=== PATIENT | female | born 1965 | race Two or more races ===

== ENCOUNTER 2025-05-13 14:52 | Emergency (ER) | payer MEDICAID, SELFPAY ==
--- NOTE | 2025-05-13 15:07 | EDNOTE_ITS ---
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 Described as room-spinning sensation that is aggravated with head movements. Accompanied unsteady gait. Denies any history of similar symptoms. Denies headache, change in vision/speech, loss of sensation/movement. Patient reports she did have breakfast. Related Data Previous Rx's ?Medication ?Instructions ?Recorded meclizine 50 mg tablet 50 mg PO BID PRN dizziness # 30 tabs 05/13/25 Allergies Allergy/AdvReac Type Severity Reaction Status Date / Time No Known Allergies Allergy Verified 05/13/25 14:54 Review of Systems Review of Systems Systems Reviewed: All systems reviewed, normal except as documented Past Medical History Past Medical History CARDIAC: Positive Hypertension Social History SMOKING STATUS: Never smoker ED Exam Narrative Physical exam: Constitutional: Awake, alert, nontoxic, no acute distress HEENT: Normocephalic, atraumatic, extraocular movements intact, right beating nystagmus. Neck: Supple CV: Regular rate and rhythm, no murmurs/rubs/gallops Lungs: Clear to auscultation BL, no respiratory distress. Abd: Soft, NT, ND, no HSM noted to palpation Neuro: AAOx3, CN 2-12 GIBL, rigth beating nystagmus, rapid alternating hand movements intact, romberg negative, somewhat unsteady gait Skin: Warm, dry, intact Course Course Course Narrative: 1655h: RN reports the patients gait is unsteady and still complains of dizziness. States the patient has yet to receive the Meclizine. 1805h: On reassessment after Meclizine, the patient reports moderately improved. CT with no no acute intracranial process, symptoms likely benign positional vertigo. Will prescribe Meclizine for home and is stable for DC. Quality Measures none Orders Category Date Time Status Orthostatic Vitals NOW Care 05/13/25 15:[address] head/brain wo con Stat Exams 05/13/25 17:02 Completed CBC Stat Lab 05/13/25 15:24 Completed CK [Creatine Kinase] Stat Lab 05/13/25 15:24 Completed CMP [Comprehensive Metabolic Panel] Stat Lab 05/13/25 15:24 Completed Magnesium Stat Lab 05/13/25 15:24 Completed Urinalysis, C/S if Indicated Stat Lab 05/13/25 16:02 Completed Meclizine HCl [Antivert] Med 05/13/25 15:07 Discontinued 50 mg PO X1 ONE Vital Signs Vital signs: Vital Signs Temperature 98.2 F 05/13/25 15:09 Pulse Rate 72 05/13/25 15:09 Respiratory Rate 17 05/13/25 15:09 Blood Pressure 189/82 H 05/13/25 15:09 Pulse Oximetry (%) 96 05/13/25 15:09 Oxygen Delivery Method Room Air 05/13/25 15:09 Pulse ox is 96% on room air which is adequate. Dizziness MDM Narrative MDM Narrative:: Siomara Kenny am scribing for and in the presence of Dr. Lubin. Patient data External records reviewed:: [facility] previous records Clinical information provided by:: patient Social determinants that could affect healthcare access:: none Patient has the following chronic illnesses:: Hypertension How is presenting disease/condition affected by chronic disease/condition?: exacerbated by Evaluation data The following diagnostics were reviewed and interpreted by me:: lab results and radiology exam(s) Lab and/or radiology exams considered but not ordered:: None Interpretation Summary: Ordering Physician: Shelby Lubin MD Date of Service: 05/13/25 Procedure(s): CT head/brain wo [facility] Accession Number(s): [id number] cc: Gaurang Vail MD; Shelby Lubin MD; NO PRIMARY/FAMILY,PHYSICIAN~ Examination: CT brain head without contrast. 2-D sagittal coronal reconstructions Date and time of exam:May 13, 2025, 1730 hrs. Indications: Onset dizziness headache today. CTDI: vol (mGy):53.2 DLP: (mGycm):1039 Technique: Multiple CT axial sections of the brain have been obtained, 5 mm slice thickness. Contrast has not been administered. 2-D sagittal, coronal reconstructions have been obtained Low dose protocols were performed. One or more of the following dose reduction techniques were used; automated exposure control, adjustment of the mA and/or KV according to patient size, use of iterative reconstruction technique. Findings: No significant ventricular enlargement. Intra-axial or extra-axial hemorrhage density is not seen. No mass effect or midline shift Basal cisterns are not remarkable. Fourth ventricle is midline. Cranial vault intact. Impression: Negative for acute hemorrhage, mass effect or midline shift Acute left sphenoid sinusitis Dictated By: Gaurang Vail MD Signed By: <Electronically signed by Gaurang Vail MD in OV> 05/13/25 1736 Medications / Prescriptions Medications or Prescriptions considered but not ordered:: None Medication administrations:: Medication Administration History Discontinued Medications Meclizine HCl (Meclizine Hcl 25 Mg Tablet) 50 mg PO X1 ONE Stop: 05/13/25 15:08 Last Admin: 05/13/25 16:59 Dose: 50 mg Documented By: DO See above Consultations Consultation(s) initiated? (list below): No Diagnosis Dizziness Differential Diagnosis: benign paroxysmal positional vertigo, orthostatic hypotension, cerebrovascular accident and transient cerebral ischemia Most likely diagnosis given after review of the tests above:: BPV Admission Indicated Admission indicated?: not indicated Admission Request Was there a request for admission?: No Disposition Plan Disposition Plan: Discharge Discharge Attestation Discharge Attestation: The patient and all family members were given an opportunity to ask questions and understood the discharge instructions. Discharge instructions specifically effects, indications for sooner follow up or return to the emergency department, and the expected course of current diagnosis. Patient condition: Stable Discharge Plan Plan Patient Disposition: HOME (Self Care) Patient condition on transfer: Stable Prescriptions/Referrals Prescriptions/Med Rec: New meclizine 50 mg tablet 50 mg PO BID PRN (Reason: dizziness) Qty: 30 0RF Referrals: No Primary/Family,Physician [Primary Care Provider] - In 1 week Problem List Clinical Impression: Benign paroxysmal positional vertigo Patient/Caregiver Discharge Instructions Education Materials: Anatomy of the Inner Ear, Inner Ear Balance, Vestibular Rehabilitation Therapy, BPPV Additional Instructions: Algunos principios generales de [place] que pueden ayudarte son los principios de ADELANTE: Agua: (beber suficiente agua fresca para mantenerse hidratado, priorizando el agua en lugar de refrescos, caf?, t?, jugos, etc.). [place] (descansar adecuadamente por la noche, acostarse unas horas antes de la medianoche y evitar las pantallas, la televisi?n y la m?clarissa pedro josef antes de acostarse, as? violette las comidas pesadas josef antes de acostarse). Ejercicio: (ejercicio/caminatas diarias seg?n la tolerancia). Katie solar: (exponer la piel al ricardo pura 15-20 minutos aproximadamente, temp rano por la ma?joon y al atardecer, para obtener los beneficios de la vitamina D). Aire (ejercicios de respiraci?n profunda temprano por la ma?joon al aire dylon). Nutricion: (consumir art dieta a base de plantas, evitar las kitty en general y los alimentos altamente procesados). Templanza (evitar el alcohol, las drogas il?citas, las bebidas con cafe?na, fumar, etc.). Erna en [place] (dedicar tiempo diariamente al estudio b?blico y la oraci?n: la contemplaci?n tiene beneficios para la [place]). Recursos adicionales que pueden ser ?tilanita: [email or web address], consulte la secci?n de recursos y seminarios. Print Language: Yakut Stand Alone Forms: Catina Award Info., Work/School Release, Patient Portal Info Letter
--- NOTE | 2025-05-13 15:07 | PC.NURSE ---
NOT A STROKE ALERT PER DR. WEAVER.
[2025-05-13 15:09] VITALS: BP 189/82; PULSE 72; RESP 17; TEMP 36.8; O2SAT 96
[2025-05-13 15:15] VITALS: BMI 39.0
[2025-05-13 15:34] LABS: Basophils # (Auto) 0.1 Thou/mm3 (0.0-0.2); Basophils % (Auto) 1 % (0-2.5); Eosinophils # (Auto) 0.1 Thou/mm3 (0.0-0.5); Eosinophils % (Auto) 1 % (0-10); Hematocrit 41.0 % (36.0-46.0); Hemoglobin 13.7 g/dL (12.0-16.0); Immature Granulocytes Auto 0.03 Thou/mm3 (0.00-0.00); Lymphocytes # (Auto) 5.2 Thou/mm3 (1.0-4.8); Lymphocytes % (Auto) 49 % (10-50); Mean Corpuscular HGB Conc 33.4 g/dl (31.0-37.0); Mean Corpuscular Hemoglobin 28.8 pg (25.0-35.0); Mean Corpuscular Volume 86 fL (80-100); Monocytes # (Auto) 0.7 Thou/mm3 (0.0-0.8); Monocytes % (Auto) 7 % (0-12); Neutrophils # (Auto) 4.6 Thou/mm3 (1.8-7.7); Neutrophils % (Auto) 43 % (37-80); Nucleated Red Blood Cell # 0.00 Thou/mm3 (0.00-0.00); Nucleated Red Blood Cell % 0 /100 WBC (0); Platelet Count 203 Thou/mm3 (140-440); RDW Standard Deviation 42.6 fL (36.4-46.3); Red Blood Count 4.75 Miln/mm3 (4.00-5.20); White Blood Count 10.8 Thou/mm3 (3.6-11.0)
[2025-05-13 16:02] LABS: Alanine Aminotransferase 33 U/L (10-49); Albumin, Serum 4.4 gm/dL (3.4-4.8); Albumin/Globulin Ratio 1.5 (1.2-2.2); Alkaline Phosphatase 72 U/L (46-116); Anion Gap 11 (7-16); Aspartate Amino Transferase 40 U/L (0-34); BUN/Creatinine Ratio 17 Ratio (12-20); Bilirubin,Total 0.4 mg/dL (0.3-1.2); Blood Urea Nitrogen 15 mg/dL (9-23); Calcium 9.3 mg/dL (8.3-10.6); Calcium (Corrected) 9.3 mg/dL (8.5-10.1); Carbon Dioxide 25.3 mMol/L (20.0-31.0); Chloride 109 mMol/L (98-107); Creatine Kinase 99 U/L (34-171); Creatinine (Component) 0.9 mg/dL (0.6-1.3); Estimated Creatinine Clearance 66.7 mL/min (>60); Globulin 2.9 gm/dL (2.3-3.5); Glucose 145 mg/dL (74-106); Magnesium 2.0 mg/dL (1.6-2.6); Osmolality,Calculated 292 (275-295); Potassium 3.9 mMol/L (3.4-5.1); Sodium 145 mMol/L (136-145); Total Protein 7.3 gm/dL (5.7-8.2); eGFR > 60 See Note
[2025-05-13 16:15] LABS: Collection Type, Urine Clean Catch
[2025-05-13 16:19] LABS: Bilirubin,Urine Negative (Negative); Blood,Urine Negative (Negative); Clarity,Urine Clear (Clear/Hazy); Color,Urine Yellow (Lt Yel-Yel); Culture Indicated,Urine Not Indicated; Glucose, Urine Negative (Negative); Ketones,Urine 1+ (Negative); Leukocyte Esterase,Urine Positive (Negative); Nitrite,Urine Negative (Negative); PH,Urine 5.5 (5.0-7.0); Protein,Urine Trace (Neg - Trace); RBC,Urine 2 /hpf (0-3); Specific Gravity,Urine 1.034 (1.001-1.035); Squamous Epithelial Cell,Urine 3 /hpf (0-5); Urobilinogen,Urine Negative mg/dL (0.0-1.0); WBC,Urine 2 /hpf (0-5)
[2025-05-13] MEDS: MECLIZINE HCL 25 MG TABLET 50 MG PO (16:59)
--- NOTE | 2025-05-13 17:02 | XR_ITS ---
Examination: CT brain head without contrast. 2-D sagittal coronal reconstructions Date and time of exam:May 13, 2025, 1730 hrs. Indications: Onset dizziness headache today. CTDI: vol (mGy):53.2 DLP: (mGycm):1039 Technique: Multiple CT axial sections of the brain have been obtained, 5 mm slice thickness. Contrast has not been administered. 2-D sagittal, coronal reconstructions have been obtained Low dose protocols were performed. One or more of the following dose reduction techniques were used; automated exposure control, adjustment of the mA and/or KV according to patient size, use of iterative reconstruction technique. Findings: No significant ventricular enlargement. Intra-axial or extra-axial hemorrhage density is not seen. No mass effect or midline shift Basal cisterns are not remarkable. Fourth ventricle is midline. Cranial vault intact. Impression: Negative for acute hemorrhage, mass effect or midline shift Acute left sphenoid sinusitis
--- NOTE | 2025-05-13 17:10 | PC.NURSE ---
PER DR. WEAVER, NO STROKE ALERT
[2025-05-13 17:13] VITALS: BP 182/61; PULSE 73; RESP 27; TEMP 36.7; O2SAT 96
[2025-05-13 18:51] VITALS: BP 147/88; PULSE 70; RESP 16; TEMP 36.7; O2SAT 99
== END 2025-05-13 18:52 | disposition home or self-care (01) ==
PROVIDERS: Emergency Provider Family Medicine
DX: H81.10 Benign paroxysmal vertigo, unspecified ear (principal); J01.30 Acute sphenoidal sinusitis, unspecified; I10 Essential (primary) hypertension
CPT/HCPCS: 36415; 70450; 80053; 81001; 82550; 83735; 85025; 99283; A9270